=== PATIENT | male | born 1935 | race Caucasian/White ===

== ENCOUNTER → 2020-09-27 | Day surgery (SDC) | payer MEDICARE ==
[2020-09-25 10:40] LABS: BASOPHILS # (AUTO) 0.1 (0.0-0.1); BASOPHILS % 0.7 % (0.0-1.0); EOSINOPHILS # (AUTO) 0.1 (0.0-0.4); EOSINOPHILS % 1.1 % (0.0-6.0); HEMATOCRIT 42.4 % (38.2-49.6); HEMOGLOBIN 14.2 g/dL (14.0-18.0); LYMPHOCYTES # (AUTO) 1.1 (1.0-3.2); LYMPHOCYTES % 13.7 % (18.0-39.1); MEAN CORPUSCULAR HEMOGLOBIN 32.7 pg (28-32); MEAN CORPUSCULAR HGB CONC 33.5 g/dL (31-35); MEAN CORPUSCULAR VOLUME 97.7 fL (81-99); MONOCYTES # (AUTO) 0.7 (0.2-0.8); MONOCYTES % 8.6 % (4.4-11.3); NEUTROPHILS # (AUTO) 6.2 (2.1-6.9); NEUTROPHILS % 75.1 % (38.7-80.0); PLATELET COUNT 155 x10e3/uL (140-360); RED BLOOD COUNT 4.34 x10e6/uL (4.3-5.7); RED CELL DISTRIBUTION WIDTH 13.1 % (11.7-14.4)
[2020-09-25 10:50] LABS: INR 1.13; PROTHROMBIN TIME 15.2 seconds (11.9-14.5)
[2020-09-25 11:00] LABS: ALANINE AMINOTRANSFERASE 18 IU/L (0-55); ALBUMIN/GLOBULIN RATIO 1.3 (0.8-2.0); ALKALINE PHOSPHATASE 56 IU/L (40-150); ANION GAP 15.2 mmol/L (8-16); BLOOD UREA NITROGEN 16 mg/dL (7-26); BUN/CREATININE RATIO 15 (6-25); CALCIUM 9.5 mg/dL (8.4-10.2); CARBON DIOXIDE 24 mmol/L (22-29); CHLORIDE 104 mmol/L (98-107); CREATININE, SERUM 1.08 mg/dL (0.72-1.25); EST GLOMERULAR FILTRATION RATE > 60 ML/MIN (60-); GLUCOSE 324 mg/dL (74-118); POTASSIUM 4.2 mmol/L (3.5-5.1); SODIUM 139 mmol/L (136-145)
[~2020-09-27] VITALS: Ht 182.9 cm; Wt 90.7 kg
[~2020-09-27] MED LIST: AMLODIPINE BESYL5 MG PO; ASPIRIN EC81 MG PO; BENZOCAINE 20% SPR 60 ML CAN ONE; ELIQUIS5 MG PO; FARXIGA10 MG PO; FUROSEMIDE40 MG PO; LEVEMIR FL100 UNIT/1 SC; LIDOCAINE HCL 2% LOCAL INJ 5 ML SDV VIAL INJ ONE; LOSARTAN POTAS100 MG PO; METFORMIN HCL500 MG PO; MIDAZOLAM HCL 2 MG/2 ML VIAL ONE; NOVOLOG100 UNIT/1 SC; PERFLUTREN LIPID MICROSPHERES 2 ML VIAL IV ONE; POVIDONE IODINE 0.05% 0.05 % ML PO ONE; PROPOFOL IV EMULSION 10 MG/ML 20 ML VIAL ONE; SIMVASTATIN20 MG PO; SODIUM CHLORIDE 0.9% 1000ML 1,000 ML ONE
[2020-09-27 11:43] VITALS: BP 152/77
[2020-09-27 11:45] VITALS: BP 135/70
[2020-09-27 12:00] VITALS: BP 143/77
[2020-09-27 12:15] VITALS: BP 164/78
[2020-09-27 12:30] VITALS: BP 164/72
== END | disposition home or self-care (01) ==
LOC: CATH LAB 09:23
PROVIDERS: ATTEND Internal Medicine
DX: I48.91 Unspecified atrial fibrillation (principal); I49.1 Atrial premature depolarization; I34.0 Nonrheumatic mitral (valve) insufficiency; I11.0 Hypertensive heart disease with heart failure; I50.20 Unspecified systolic (congestive) heart failure; E78.5 Hyperlipidemia, unspecified; E13.69 Other specified diabetes mellitus with other specified complication; Z01.812 Encounter for preprocedural laboratory examination; Z20.822 Contact with and (suspected) exposure to COVID-19; Z79.4 Long term (current) use of insulin; Z79.82 Long term (current) use of aspirin; Z79.02 Long term (current) use of antithrombotics/antiplatelets; Z87.891 Personal history of nicotine dependence; Z82.49 Family history of ischemic heart disease and other diseases of the circulatory system; Z82.3 Family history of stroke; Z83.3 Family history of diabetes mellitus
CPT/HCPCS: 36415 ×2; 80053; 82948; 85025; 85610; 92960; 93005; 93312; 93320; 93325; J2001; J2250; J2704; J7030; Q9957; U0002

== ENCOUNTER → 2021-08-27 | Outpatient (CLI) | payer MEDICARE ==
[~2021-08-27] MED LIST changes: -BENZOCAINE 20% SPR 60 ML CAN ONE; +IOPAMIDOL 370 MG/ML 100 ML INFUS..BTL INJ ONE; -LIDOCAINE HCL 2% LOCAL INJ 5 ML SDV VIAL INJ ONE; -MIDAZOLAM HCL 2 MG/2 ML VIAL ONE; -PERFLUTREN LIPID MICROSPHERES 2 ML VIAL IV ONE; -POVIDONE IODINE 0.05% 0.05 % ML PO ONE; -PROPOFOL IV EMULSION 10 MG/ML 20 ML VIAL ONE; +SODIUM CHLORIDE 0.9% 100 ML ONE; -SODIUM CHLORIDE 0.9% 1000ML 1,000 ML ONE; +SODIUM CHLORIDE 0.9% 500ML 500 ML ONE
[2021-08-27 13:41] LABS: CREATININE, SERUM 1.39 mg/dL (0.72-1.25)
== END ==
LOC: CT 12:44
PROVIDERS: ATTEND Internal Medicine
DX: I65.23 Occlusion and stenosis of bilateral carotid arteries (principal)
CPT/HCPCS: 36415; 70498; 82565; 84520; 96360; J7040; J7050; Q9967